=== PATIENT | female | born 1995 | race Two or more races ===

== ENCOUNTER 2018-07-05 10:38 | Day surgery (SDC) | payer BC ==
[2018-07-03 08:15] VITALS: BP 114/77
[~2018-07-05] VITALS: Ht 160 cm; Wt 53.6 kg
[~2018-07-05 10:38] MED LIST: DOXYCYCLINE 100MG TABLET PO ONE; NONE PER PT
[2018-07-05] MEDS ORDERED: LACTATED RINGERS 1,000 ML IV SCH (10:57)
[2018-07-05] MEDS ORDERED: MISOPROSTOL 200 MCG TABLET ONE (11:58)
[2018-07-05] MEDS ORDERED: OXYTOCIN 10 UNITS/ML, 1ML ONE (11:58)
[2018-07-05] MEDS ORDERED: SILVER NITRATE STICK TP ONE (11:58)
[2018-07-05] MEDS ORDERED: METHYLERGONOVINE 0.2 MG/ML IM ONE (11:59)
[2018-07-05] MEDS ORDERED: DOXYCYCLINE 100MG TABLET PO STA (12:19)
[2018-07-05] MEDS ORDERED: MIDAZOLAM 1 MG/ML, 2ML ONE (12:23)
[2018-07-05] MEDS ORDERED: FENTANYL PF 100 MCG/2ML ONE ×2 (12:23→13:19)
[2018-07-05] MEDS ORDERED: DOXYCYCLINE 100MG TABLET PO SCH (12:30)
[2018-07-05] MEDS ORDERED: PROPOFOL 10 MG/ML, 20ML ONE (12:34)
[2018-07-05] MEDS ORDERED: ROCURONIUM 10 MG/ML,10ML ONE (12:34)
[2018-07-05] MEDS ORDERED: ONDANSETRON 2MG/ML, 2ML ONE (12:34)
[2018-07-05] MEDS ORDERED: ALBUTEROL SULFATE 2.5 MG/3 ML NPPB PRN (13:00)
[2018-07-05] MEDS ORDERED: OXYcodone 5 MG/5 ML ORAL.SOL UDC PO PRN (13:00)
[2018-07-05] MEDS ORDERED: METOCLOPRAMIDE 5 MG/ML, 2ML IV PRN (13:00)
[2018-07-05] MEDS ORDERED: KETOROLAC 30 MG/1 ML IV PRN (13:00)
[2018-07-05] MEDS ORDERED: FENTANYL PF 100 MCG/2ML IV PRN (13:00)
[2018-07-05] MEDS ORDERED: hydrALAzine 20 MG/ML, 1ML IV PRN (13:00)
[2018-07-05] MEDS ORDERED: HYDROmorphone 1 MG/ML, 1ML IV PRN (13:00)
[2018-07-05] MEDS ORDERED: LABETALOL 5MG/ML, 20ML IV PRN (13:00)
[2018-07-05] MEDS ORDERED: PROMETHAZINE 25 MG/ML, 1ML IV PRN (13:00)
[2018-07-05] MEDS ORDERED: ONDANSETRON 2MG/ML, 2ML IVPush PRN (13:00)
[2018-07-05] MEDS ORDERED: MEPERIDINE/PF 25MG/0.5ML IVPush PRN (13:00)
[2018-07-05] MEDS ORDERED: OXYcodone 5 MG/5 ML ORAL.SOL UDC ONE (13:19)
[2018-07-05] MEDS ORDERED: KETOROLAC 30 MG/1 ML ONE (13:27)
== END 2018-07-05 14:55 | disposition home or self-care (01) ==
LOC: OUT 10:38
PROVIDERS: ATTEND Student in an Organized Health Care Education/Training Program
DX: O02.1 Missed abortion (principal); Z3A.08 8 weeks gestation of pregnancy; E78.00 Pure hypercholesterolemia, unspecified; I11.9 Hypertensive heart disease without heart failure; Z85.3 Personal history of malignant neoplasm of breast
CPT/HCPCS: 36415; 59820; 86901; 88305; J1885; J2210; J2250; J2405; J2704; J3010; J7120; J2590

== ENCOUNTER 2019-06-28 18:55 | Inpatient (IN) | payer OTHER ==
[~2019-06-28] VITALS: Ht 160 cm; Wt 73.6 kg
[~2019-06-28 18:55] MED LIST changes: -DOXYCYCLINE 100MG TABLET PO ONE
[2019-06-28] MEDS: LACTATED RINGERS 1,000 ML IV SCH (20:23)
[2019-06-28] MEDS ORDERED: D5%-LACTATED RINGERS 1,000 ML IV SCH (20:23)
[2019-06-28] MEDS ORDERED: OXYTOCIN 30U/ 0.9% NaCL 500ML 500 ML IV ONE (20:23)
[2019-06-28] MEDS ORDERED: FENTANYL PF 100 MCG/2ML IV PRN (20:30)
[2019-06-28] MEDS ORDERED: TERBUTALINE 1 MG/ML, 1ML IVPush PRN (20:30)
[2019-06-28] MEDS ORDERED: SODIUM CHLORIDE FLUSH 10ML SYR IVF PRN (20:30)
[2019-06-28] MEDS ORDERED: METOCLOPRAMIDE 5 MG/ML, 2ML IVPush PRN (20:30)
[2019-06-28] MEDS ORDERED: FENTANYL PF 100 MCG/2ML IVPush PRN (20:30)
[2019-06-28] MEDS ORDERED: ONDANSETRON 2MG/ML, 2ML IVPush PRN (20:30)
[2019-06-28] MEDS ORDERED: SODIUM CITRATE/CITRIC ACID 15 ML UDC PO PRN (20:30)
[2019-06-28] MEDS ORDERED: NEWBORN KIT ONE ×2 (20:31→20:38)
[2019-06-28] MEDS ORDERED: LIDOCAINE 1%, 20ML ONE (20:38)
[2019-06-28] MEDS ORDERED: MISOPROSTOL 200 MCG TABLET ONE (20:38)
[2019-06-28] MEDS ORDERED: OXYTOCIN 30U/ 0.9% NaCL 500ML 500 ML ONE (20:39)
[2019-06-28 20:40] VITALS: BP 122/74
[2019-06-28] MEDS ORDERED: MISOPROSTOL 25 MCG TABLET ONE (20:50)
[2019-06-28] MEDS: MISOPROSTOL 25 MCG TABLET VG PRN (20:58)
[2019-06-28 21:36] LABS: BASOPHILS # (AUTO) 0.14 x10^3/uL (0-0.1); BASOPHILS % (AUTO) 1 % (0-1); EOSINOPHILS # (AUTO) 0.43 x10^3/uL (0-0.4); EOSINOPHILS % (AUTO) 3 % (1-7); LYMPHOCYTES # (AUTO) 2.14 x10^3/uL (1-3.4); LYMPHOCYTES % (AUTO) 16 % (22-44); MD NO; MEAN CORPUSCULAR HEMOGLOBIN 26.5 pg (27.0-34.8); MEAN CORPUSCULAR HGB CONC 32.3 g/dL (32.4-35.8); MEAN PLATELET VOLUME 11.6 fL (7.4-10.4); MONOCYTES # (AUTO) 0.93 x10^3/uL (0.2-0.8); MONOCYTES % (AUTO) 7 % (2-9); NEUTROPHILS # (AUTO) 9.84 x10^3/uL (1.8-6.8); NEUTROPHILS % (AUTO) 73 % (42-75); PLATELET COUNT 169 x10^3/uL (130-400); RED BLOOD COUNT 4.64 x10^6/uL (3.82-5.3); RED CELL DISTRIBUTION WIDTH 15.3 % (9.6-15.2)
[2019-06-29] MEDS ORDERED: MISOPROSTOL 25 MCG TABLET ONE (01:03)
[2019-06-29] MEDS: MISOPROSTOL 25 MCG TABLET VG PRN (01:09)
[2019-06-29] MEDS ORDERED: FENTANYL/BUPIV./NS/PF 250 ML EPIDCONT SCH ×2 (03:44→08:38)
[2019-06-29] MEDS ORDERED: FENTANYL PF 100 MCG/2ML ONE (03:44)
[2019-06-29] MEDS: LACTATED RINGERS 1,000 ML IV SCH ×4 (07:11→20:02)
[2019-06-29] MEDS ORDERED: BUPIVACAINE 0.25% ONE (08:07)
[2019-06-29] MEDS ORDERED: LACTATED RINGERS 1,000 ML IVBOLUS PRN (09:00)
[2019-06-29] MEDS ORDERED: EPHEDRINE 50 MG/ML, 1ML IVPush PRN (09:00)
[2019-06-29] MEDS ORDERED: ONDANSETRON 2MG/ML, 2ML ONE (12:10)
[2019-06-30] MEDS ORDERED: MISOPROSTOL 200 MCG TABLET ONE (00:36)
[2019-06-30] MEDS ORDERED: METHYLERGONOVINE 0.2 MG/ML IM ONE (00:36)
[2019-06-30] MEDS ORDERED: OXYTOCIN 30U/ 0.9% NaCL 500ML 500 ML ONE (01:18)
[2019-06-30] MEDS ORDERED: IBUPROFEN 600 MG TABLET ONE (01:18)
[2019-06-30] MEDS ORDERED: METHYLERGONOVINE 0.2 MG/ML IM PRN (01:30)
[2019-06-30] MEDS ORDERED: IBUPROFEN 800 MG TABLET PO PRN (01:30)
[2019-06-30] MEDS ORDERED: MISOPROSTOL 200 MCG TABLET PR ONE (01:30)
[2019-06-30] MEDS ORDERED: DOCUSATE 100 MG CAPSULE PO PRN (01:30)
[2019-06-30] MEDS ORDERED: METOCLOPRAMIDE 5 MG/ML, 2ML IV PRN (01:30)
[2019-06-30] MEDS ORDERED: ONDANSETRON 2MG/ML, 2ML IV PRN (01:30)
[2019-06-30] MEDS ORDERED: CARBOPROST TROMETHAMINE 250 MCG/ML, 1ML IM PRN (01:30)
[2019-06-30] MEDS ORDERED: BISACODYL 10 MG SUPP PR PRN (01:30)
[2019-06-30] MEDS ORDERED: GLYCERIN ADULT SUPP PR PRN (01:30)
[2019-06-30] MEDS ORDERED: OXYcodone/APAP 5/325MG TABLET PO PRN ×2 (01:30)
[2019-06-30] MEDS ORDERED: ACETAMINOPHEN 325 MG TABLET PO PRN (01:30)
[2019-06-30] MEDS: IBUPROFEN 600 MG TABLET PO PRN ×2 (02:18→12:40)
[2019-06-30] MEDS: OXYTOCIN 30U/ 0.9% NaCL 500ML 500 ML IV SCH ×2 (02:19→11:04)
[2019-06-30 03:00] VITALS: BP 96/62
[2019-06-30 08:00] VITALS: BP 95/65
[2019-06-30 08:05] LABS: MEAN CORPUSCULAR HEMOGLOBIN 25.9 pg (27.0-34.8); MEAN CORPUSCULAR HGB CONC 31.7 g/dL (32.4-35.8); MEAN CORPUSCULAR VOLUME 81.7 fL (80-100); MEAN PLATELET VOLUME 11.6 fL (7.4-10.4); PLATELET COUNT 143 x10^3/uL (130-400); RED BLOOD COUNT 4.38 x10^6/uL (3.82-5.3); RED CELL DISTRIBUTION WIDTH 15.3 % (9.6-15.2)
[2019-06-30 08:24] LABS: MD YES
[2019-06-30 08:25] LABS: BAND#(MANUAL) 0.59 x10^3/uL; BANDS%(MANUAL) 3 % (0-7); EOS#(MANUAL) 0.39 x10^3/uL (0.0-0.4); EOS% (MANUAL) 2 % (1-7); METAMYELOCYTES% (MANUAL) 1 % (0-1); MONOS#(MANUAL) 0.39 x10^3/uL (0.3-2.7); MONOS% (MANUAL) 2 % (2-9)
[2019-06-30 08:26] LABS: LYMPH#(MANUAL) 3.15 x10^3/uL (1-3.4); LYMPHS% (MANUAL) 16 % (22-44); SEG#(MANUAL) 14.97 x10^3/uL (1.8-6.8); SEGS% (MANUAL) 76 % (42-75)
[2019-06-30 08:27] LABS: <PLATELET ESTIMATE> ADEQUATE; ANISOCYTOSIS 1+; LARGE PLATELETS 1+
[2019-06-30] MEDS: PRENATAL VIT/IRON/FA 1 EACH TABLET PO SCH (09:34)
[2019-06-30 12:00] VITALS: BP 98/69
[2019-06-30 16:00] VITALS: BP 95/66
[2019-06-30] MEDS ORDERED: DIPH,PERTUSS(ACELL),TET VAC/PF NC IM-VACC ONE (19:05)
[2019-06-30 19:20] VITALS: BP 104/71
[2019-06-30] MEDS ORDERED: MEASLES,MUMPS&RUBELLA VACC/PF 0.5 ML SQ-VACC ONE (20:00)
[2019-07-01 00:30] VITALS: BP 92/60
[2019-07-01] MEDS: IBUPROFEN 600 MG TABLET PO PRN (02:29)
[2019-07-01 03:35] VITALS: BP 92/60
[2019-07-01 08:30] VITALS: BP 100/72
[2019-07-01] MEDS: PRENATAL VIT/IRON/FA 1 EACH TABLET PO SCH (09:00)
[2019-07-01] MEDS ORDERED: IBUP-1222 PO (10:02)
== END 2019-07-01 11:40 | disposition home or self-care (01) | DRG 807 ==
LOC: LDIP 20:17 → 2NW 06-30 02:42
PROVIDERS: ADMIT Student in an Organized Health Care Education/Training Program; ATTEND Student in an Organized Health Care Education/Training Program
PROC: 10E0XZZ Delivery of Products of Conception, External Approach (ICD-10-PCS; principal; 2019-06-29)
PROC: 0KQM0ZZ Repair Perineum Muscle, Open Approach (ICD-10-PCS; 2019-06-29)
PROC: 10D17Z9 Manual Extraction of Products of Conception, Retained, Via Natural or Artificial Opening (ICD-10-PCS; 2019-06-29)
PROC: 0U7C7ZZ Dilation of Cervix, Via Natural or Artificial Opening (ICD-10-PCS; 2019-06-29)
PROC: 3E0P7VZ Introduction of Hormone into Female Reproductive, Via Natural or Artificial Opening (ICD-10-PCS; 2019-06-29)
PROC: 3E0R3BZ Introduction of Anesthetic Agent into Spinal Canal, Percutaneous Approach (ICD-10-PCS; 2019-06-29)
PROC: 00HU33Z Insertion of Infusion Device into Spinal Canal, Percutaneous Approach (ICD-10-PCS; 2019-06-29)
PROC: 10907ZC Drainage of Amniotic Fluid, Therapeutic from Products of Conception, Via Natural or Artificial Opening (ICD-10-PCS; 2019-06-29)
DX: O70.1 Second degree perineal laceration during delivery (principal); Z37.0 Single live birth; Z3A.39 39 weeks gestation of pregnancy; Z80.3 Family history of malignant neoplasm of breast; Z82.49 Family history of ischemic heart disease and other diseases of the circulatory system; Z88.1 Allergy status to other antibiotic agents; O73.0 Retained placenta without hemorrhage
CPT/HCPCS: 36415; 85025; 86850; 86900; G0378; J2405; J3010; J2210; J2590; J7120